=== PATIENT | male | born 1945 | race Caucasian/White ===

== ENCOUNTER 2016-11-12 15:29 | Inpatient (IN) | payer OTHER ==
[~2016-11-12] VITALS: Ht 180.3 cm; Wt 100.5 kg
[~2016-11-12 15:29] MED LIST: ANALGESIC325 M1 PO; ASPIR-TRIN325 M1 PO; ASPIRIN81 M1 PO; BAYER CHEWABLE81 MG PO; BENICAR HCT 201 EACH PO; BYSTOLIC5 MG PO; Bactrim,Septra DS 80 PO; CALCIUM 600 +1 EAC8 PO; CLEOCIN300 MG PO; Colace PO; ENDOCET 5-3251 EACH PO; FLOMAX0.4 M1 PO; FLOMAX0.4 MG PO; FORTAMET500 M1 PO; FUROSEMIDE40 MG PO; Flomax PO; GLUCOPHAGE XR1000 MG PO; GLUCOPHAGE1000 MG PO; HYDROCODON-ACE1 EAC9 PO; JANUVIA100 MG PO; Januvia PO; K-DUR10 ME2 PO; K-DUR10 MEQ PO; LISINOPRIL-HCT1 EAC3 PO; LORTAB 7.5/51 TABLET PO; LOVENOX40 MG/0.4 SC; Lasix PO; Norco 5/325 PO; Oyst-Cal D, Oscal W/ PO; PRAMIPEXOLE DI0.5 MG PO; PREDNISONE10 MG PO; PRINZIDE 20-121 EACH PO; PROTONIX40 MG PO; TYLENOL325 M1 PO; Tylenol Regular Stre PO; VANCOMYCIN100 MG/ML IV
[2016-11-12 16:25] LABS: EOSINOPHIL (%) 1.8 % (0-5); EOSINOPHIL COUNT 0.1 K/uL (0-0.3); HEMATOCRIT 41.9 % (38.0-50.0); IMMATURE GRANULOCYTE (%) 0.9 % (0.0-0.7); IMMATURE GRANULOCYTE COUNT 0.1 K/uL; INSTRUMENT ABS NEUTROPHIL CT 6.8 K/uL; LYMPHOCYTE COUNT 0.4 K/uL (1.0-2.8); MCH 29.3 PG (29.0-34.0); MCHC 32.2 G/DL (30.0-36.0); MCV 90.9 FL (86-99); MEAN PLAT.VOLUME 9.4 uM^3 (9.0-12.4); MONOCYTE (%) 5.3 % (3-12); MONOCYTE COUNT 0.4 K/uL (0-0.8); NEUTROPHIL (%) 87.1 % (45-76); NEUTROPHIL COUNT 6.8 K/uL (1.8-6.4); PLATELET COUNT 143 K/uL (156-360); RED BLOOD COUNT 4.61 M/uL (4.00-5.50); WHITE BLOOD COUNT 7.8 K/uL (4.1-10.2)
[2016-11-12 16:39] LABS: CHLORIDE 101 mEq/L (99-109); POTASSIUM 3.7 mEq/L (3.7-5.4); SODIUM 138 mEq/L (136-147)
[2016-11-12 16:40] LABS: GLUCOSE 95 mg/dL (70-99)
[2016-11-12 16:42] LABS: ANION GAP 11 MEQ/L (2-14)
[2016-11-12 16:44] LABS: GFR ESTIMATE (CALCULATED) 46 mL/min/
[2016-11-12 16:45] LABS: UREA NITROGEN (BUN) 37 mg/dL (9-23)
[2016-11-12] MEDS ORDERED: OXYCODONE-APAP1 EAC6 PO (19:33)
[2016-11-12] MEDS ORDERED: CARBIDOPA/LEVO1 EACH PO (19:33)
[2016-11-12] MEDS ORDERED: TRAMADOL HCL50 MG PO (19:34)
[2016-11-12] MEDS ORDERED: DUTASTERIDE0.5 MG PO (19:35)
[2016-11-12 22:29] VITALS: BP 118/61
[2016-11-12 23:06] VITALS: BP 128/67
[2016-11-13 01:24] LABS: METH RESISTANT S AUREUS PCR POSITIVE (NEGATIVE)
[2016-11-13 01:34] LABS: PROBE CHECK PASS
[2016-11-13 03:38] VITALS: BP 130/61
[2016-11-13 06:43] LABS: POINT-OF-CARE METER ID UU14162508
[2016-11-13 07:24] LABS: ALKALINE PHOSPHATASE 49 IU/L (3-129); ANION GAP 8 MEQ/L (2-14); CHLORIDE 99 MEQ/L (99-109); GFR ESTIMATE (CALCULATED) 46 mL/min/; GLUCOSE 88 mg/dL (70-99); POTASSIUM 3.6 MEQ/L (3.7-5.4); SAMPLE HEMOLYSIS CHECK 0; SAMPLE ICTERIC CHECK 0; SAMPLE LIPEMIA CHECK 0; SODIUM 135 MEQ/L (136-147); TOTAL BILIRUBIN 0.8 MG/DL (0.0-1.0); UREA NITROGEN (BUN) 31 mg/dL (9-23)
[2016-11-13 08:00] VITALS: BP 121/65
[2016-11-13] MEDS ORDERED: AVALIDE 300/1 TABLET PO (11:48)
[2016-11-13] MEDS ORDERED: FLOMAX0.4 MG PO (11:49)
[2016-11-13] MEDS ORDERED: AVODART0.5 MG PO (11:49)
[2016-11-13] MEDS ORDERED: BYSTOLIC10 MG PO (11:50)
[2016-11-13] MEDS ORDERED: PRAMIPEXOLE DI0.5 MG PO (11:50)
[2016-11-13] MEDS ORDERED: JANUVIA100 MG PO (11:51)
[2016-11-13] MEDS ORDERED: METFORMIN HCL1000 MG PO (11:51)
[2016-11-13] MEDS ORDERED: XANAX0.5 MG PO (11:52)
[2016-11-13] MEDS ORDERED: K-DUR10 MEQ PO (11:52)
[2016-11-13] MEDS ORDERED: SINEMET CR 25-1 EACH PO (11:53)
[2016-11-13] MEDS ORDERED: CALCIUM 600 +1 EAC9 PO (11:53)
[2016-11-13] MEDS ORDERED: SINEMET 25-1001 EACH PO (11:53)
[2016-11-13] MEDS ORDERED: PERCOCET 7.51 TABLET PO (11:54)
[2016-11-13] MEDS ORDERED: LOW DOSE ASPIRI81 M1 PO (11:55)
[2016-11-13] MEDS ORDERED: TRAMADOL HCL50 MG PO (11:55)
[2016-11-13] MEDS ORDERED: LASIX40 MG PO (11:55)
[2016-11-13] MEDS ORDERED: TYLENOL EXTRA500 MG PO (11:56)
[2016-11-13] MEDS ORDERED: IMODIUM A-D2 M2 PO (11:56)
[2016-11-13] MEDS ORDERED: BLINK TEARS BOTH EYES (12:01)
[2016-11-13 12:36] LABS: POINT-OF-CARE METER ID UU14162508
[2016-11-13 23:45] VITALS: BP 127/63
[2016-11-14 08:11] VITALS: BP 108/62
[2016-11-14 15:27] VITALS: BP 106/76
[2016-11-14 21:47] LABS: POINT-OF-CARE METER ID UU14162508
[2016-11-14 23:16] VITALS: BP 155/69
[2016-11-15 04:01] VITALS: BP 128/69
[2016-11-15 06:55] LABS: POINT-OF-CARE METER ID UU14162508
[2016-11-15 07:50] VITALS: BP 128/72
[2016-11-15 11:45] LABS: POINT-OF-CARE METER ID UU14162508
[2016-11-15 15:59] VITALS: BP 123/68
[2016-11-15 16:32] LABS: POINT-OF-CARE METER ID UU14162508
[2016-11-15] MEDS ORDERED: PERCOCET 10/1 TABLET PO (17:09)
[2016-11-15] MEDS ORDERED: AUGMENTIN500 MG PO (17:09)
== END 2016-11-15 17:43 | disposition home or self-care (01) | DRG 603 ==
LOC: EME 15:29 → EDOF 21:13 → 2EASTP 21:13 → 5SOUTH 11-13 15:29 → 2EASTP 11-13 16:13
PROVIDERS: Internal Medicine; Nurse Practitioner Family
DX: L03.116 Cellulitis of left lower limb (principal); I10 Essential (primary) hypertension; E11.9 Type 2 diabetes mellitus without complications; J43.9 Emphysema, unspecified; G20 Parkinson's disease; M19.90 Unspecified osteoarthritis, unspecified site; I25.10 Atherosclerotic heart disease of native coronary artery without angina pectoris; Z96.652 Presence of left artificial knee joint; L84 Corns and callosities; B07.0 Plantar wart; I25.2 Old myocardial infarction; Z79.4 Long term (current) use of insulin; Z79.84 Long term (current) use of oral hypoglycemic drugs; Z88.2 Allergy status to sulfonamides
CPT/HCPCS: 73560; 73630; 80048; 80053; 80202; 82565; 82948; 83605; 85025; 87040; 87641; 93971; 94660; 99281; 99285; J0295; J1650; J1815; J3370; J7050

== ENCOUNTER 2017-07-24 14:44 | Inpatient (IN) | payer OTHER ==
[~2017-07-24] VITALS: Ht 177.8 cm; Wt 104.6 kg
[~2017-07-24 14:44] MED LIST changes: +AUGMENTIN500 MG PO; +AVALIDE 300/1 TABLET PO; +AVODART0.5 MG PO; +BLINK TEARS BOTH EYES; +BYSTOLIC10 MG PO; +CALCIUM 600 +1 EAC9 PO; +CARBIDOPA/LEVO1 EACH PO; +DUTASTERIDE0.5 MG PO; +IMODIUM A-D2 M2 PO; +LASIX40 MG PO; +LOW DOSE ASPIRI81 M1 PO; +METFORMIN HCL1000 MG PO; +OXYCODONE-APAP1 EAC6 PO; +PERCOCET 10/1 TABLET PO; +PERCOCET 7.51 TABLET PO; +SINEMET 25-1001 EACH PO; +SINEMET CR 25-1 EACH PO; +TRAMADOL HCL50 MG PO; +TYLENOL EXTRA500 MG PO; +XANAX0.5 MG PO
[2017-07-24 15:26] LABS: BASOPHIL (%) 0.8 % (0-1); BASOPHIL COUNT 0.1 K/uL (0-0.1); EOSINOPHIL (%) 4.5 % (0-5); EOSINOPHIL COUNT 0.3 K/uL (0-0.3); HEMATOCRIT 37.4 % (38.0-50.0); HEMOGLOBIN 12.5 G/DL (12.5-16.6); IMMATURE GRANULOCYTE (%) 1.1 % (0.0-0.7); LYMPHOCYTE (%) 15.7 % (15-42); MCH 29.4 PG (29.0-34.0); MCHC 33.4 G/DL (30.0-36.0); MONOCYTE (%) 7.1 % (3-12); MONOCYTE COUNT 0.5 K/uL (0-0.8); NEUTROPHIL (%) 70.8 % (45-76); NEUTROPHIL COUNT 4.6 K/uL (1.8-6.4); PLATELET COUNT 192 K/uL (156-360); RBC DIS.WIDTH-CV 13.2 % (11.8-14.6); RBC DIS.WIDTH-SD 42.5 % (39-53); RED BLOOD COUNT 4.25 M/uL (4.00-5.50); WHITE BLOOD COUNT 6.5 K/uL (4.1-10.2)
[2017-07-24 15:35] LABS: ALBUMIN 4.1 g/dL (3.2-4.8)
[2017-07-24 15:36] LABS: CHLORIDE 102 mEq/L (99-109); POTASSIUM 3.6 mEq/L (3.7-5.4); SODIUM 140 mEq/L (136-147)
[2017-07-24 15:38] LABS: GLUCOSE 127 mg/dL (70-99); TOTAL PROTEIN 7.6 g/dL (6.4-8.3)
[2017-07-24 15:40] LABS: TOTAL BILIRUBIN 0.4 mg/dL (0.0-1.0)
[2017-07-24 15:41] LABS: ALKALINE PHOSPHATASE 61 IU/L (3-129)
[2017-07-24 15:42] LABS: CREATININE 1.7 mg/dL (0.6-1.3); GFR ESTIMATE (CALCULATED) 43 mL/min/ (58.99-99999)
[2017-07-24 15:43] LABS: AST (GOT) 16 IU/L (2-34); UREA NITROGEN (BUN) 35 mg/dL (9-23)
[2017-07-24 15:44] LABS: ALT (GPT) 8 IU/L (3-49)
[2017-07-24 20:48] LABS: APPEARANCE CLEAR ((CLEAR)); BILIRUBIN NEGATIVE; BLOOD NEGATIVE; COLOR YELLOW ((YELLOW)); GLUCOSE (STRIP) NEGATIVE; KETONES NEGATIVE; LEUKOCYTES NEGATIVE; NITRITE NEGATIVE; PROTEIN (STRIP) NEGATIVE; SPECIFIC GRAVITY 1.018 (1.000-1.030); UCUL ADDED? NO; UROBILINOGEN 0.2 MG/DL (0.2-1.0)
[2017-07-24 21:26] VITALS: BP 119/60
[2017-07-25] VITALS (7 sets, daily range): BP systolic 93–132; BP diastolic 55–80
[2017-07-26 04:10] VITALS: BP 108/55
[2017-07-26 07:57] VITALS: BP 101/61
[2017-07-26 12:04] VITALS: BP 142/67
[2017-07-26 16:39] VITALS: BP 109/64
[2017-07-26 19:04] VITALS: BP 111/60
[2017-07-26 22:43] VITALS: BP 115/57
[2017-07-27 04:10] VITALS: BP 106/58
[2017-07-27 08:03] VITALS: BP 99/55
[2017-07-27 12:07] VITALS: BP 115/66
[2017-07-27 16:35] VITALS: BP 115/66
[2017-07-27 19:47] VITALS: BP 134/68
[2017-07-27 23:49] VITALS: BP 109/61
[2017-07-28 07:10] VITALS: BP 119/61
[2017-07-28] MEDS ORDERED: TRAMADOL HCL50 MG PO (12:45)
[2017-07-28] MEDS ORDERED: HYDROCODON-ACE1 EAC9 PO (12:45)
[2017-07-28] MEDS ORDERED: AMLODIPINE BESY10 MG PO (12:45)
[2017-07-28] MEDS ORDERED: METFORMIN HCL1000 M3 PO (12:46)
[2017-07-28] MEDS ORDERED: OMEPRAZOLE40 M1 PO (12:47)
[2017-07-28] MEDS ORDERED: COMTAN200 MG PO (12:47)
[2017-07-28] MEDS ORDERED: MAGNESIUM400 M1 PO (12:48)
[2017-07-28] MEDS ORDERED: MUCINEX1200 MG PO (12:48)
[2017-07-28] MEDS ORDERED: ARTIFICIAL TEAR1510 BOTH EYES (12:49)
[2017-07-28 15:18] VITALS: BP 113/61
[2017-07-29 00:30] VITALS: BP 136/60
[2017-07-29 07:37] VITALS: BP 112/59
[2017-07-29 11:37] VITALS: BP 118/56
[2017-07-29] MEDS ORDERED: AMITRIPTYLINE H50 MG PO (15:09)
[2017-07-29] MEDS ORDERED: LYRICA75 MG PO (15:11)
[2017-07-29] MEDS ORDERED: ALPRAZOLAM0.5 MG PO (15:11)
[2017-07-29 15:49] VITALS: BP 143/70
== END 2017-07-29 17:23 | DRG 603 ==
LOC: EME 14:44 → 5EAST 17:38 → EDOF 17:38 → ENRESERV 17:40 → 5EAST 21:04
PROVIDERS: Emergency Medicine; Internal Medicine
DX: L03.115 Cellulitis of right lower limb (principal); L97.821 Non-pressure chronic ulcer of other part of left lower leg limited to breakdown of skin; L97.521 Non-pressure chronic ulcer of other part of left foot limited to breakdown of skin; L03.116 Cellulitis of left lower limb; E11.621 Type 2 diabetes mellitus with foot ulcer; G20 Parkinson's disease; I11.0 Hypertensive heart disease with heart failure; I50.9 Heart failure, unspecified; E78.5 Hyperlipidemia, unspecified; K21.9 Gastro-esophageal reflux disease without esophagitis; G25.81 Restless legs syndrome; Z79.4 Long term (current) use of insulin; I25.10 Atherosclerotic heart disease of native coronary artery without angina pectoris; F41.9 Anxiety disorder, unspecified; M19.90 Unspecified osteoarthritis, unspecified site; Z96.652 Presence of left artificial knee joint; E11.51 Type 2 diabetes mellitus with diabetic peripheral angiopathy without gangrene; Z87.891 Personal history of nicotine dependence; E66.9 Obesity, unspecified; Z68.31 Body mass index [BMI] 31.0-31.9, adult; I83.028 Varicose veins of left lower extremity with ulcer other part of lower leg
CPT/HCPCS: 36415; 73630; 80053; 81003; 82948; 83605; 83880 GA; 85025; 93971; 97530 GP; 99281; 99285; J1644; J2543; J3370; J7050

== ENCOUNTER 2017-09-15 10:58 | Inpatient (IN) | payer OTHER ==
[~2017-09-15] VITALS: Ht 177.8 cm; Wt 97.8 kg
[~2017-09-15 10:58] MED LIST changes: +ALPRAZOLAM0.5 MG PO; +AMITRIPTYLINE H50 MG PO; +AMLODIPINE BESY10 MG PO; +ARTIFICIAL TEAR1510 BOTH EYES; +COMTAN200 MG PO; +LYRICA75 MG PO; +MAGNESIUM OXID500 MG PO; +METFORMIN HCL1000 M3 PO; +MUCINEX1200 MG PO; +OMEPRAZOLE40 M1 PO
[2017-09-15 11:30] LABS: BASOPHIL (%) 0.5 % (0-1); EOSINOPHIL (%) 2.3 % (0-5); EOSINOPHIL COUNT 0.2 K/uL (0-0.3); HEMATOCRIT 36.6 % (38.0-50.0); HEMOGLOBIN 12.3 G/DL (12.5-16.6); IMMATURE GRANULOCYTE (%) 0.7 % (0.0-0.7); LYMPHOCYTE (%) 11.9 % (15-42); MCH 28.9 PG (29.0-34.0); MCHC 33.6 G/DL (30.0-36.0); MCV 86.1 FL (86-99); MONOCYTE COUNT 0.8 K/uL (0-0.8); NEUTROPHIL (%) 74.6 % (45-76); NEUTROPHIL COUNT 6.2 K/uL (1.8-6.4); PLATELET COUNT 180 K/uL (156-360); RBC DIS.WIDTH-CV 13.7 % (11.8-14.6); RBC DIS.WIDTH-SD 42.9 % (39-53); RED BLOOD COUNT 4.25 M/uL (4.00-5.50); WHITE BLOOD COUNT 8.3 K/uL (4.1-10.2)
[2017-09-15 11:35] LABS: INTER. NORMALIZED RATIO 1.3
[2017-09-15 11:38] LABS: CHLORIDE 104 mEq/L (99-109); POTASSIUM 3.7 mEq/L (3.7-5.4); PTT 33.7 SEC (25-37); SODIUM 139 mEq/L (136-147)
[2017-09-15 11:39] LABS: GLUCOSE 132 mg/dL (70-99)
[2017-09-15 11:43] LABS: GFR ESTIMATE (CALCULATED) 35 mL/min/ (58.99-99999)
[2017-09-15 11:44] LABS: UREA NITROGEN (BUN) 29 mg/dL (9-23)
[2017-09-15 11:50] LABS: TROP-I INTERPRETATION NEGATIVE; TROPONIN-I < 0.01 ng/mL (0.0-0.30)
[2017-09-15 12:51] LABS: APPEARANCE CLEAR ((CLEAR)); BILIRUBIN NEGATIVE; BLOOD NEGATIVE; COLOR AMBER ((YELLOW)); GLUCOSE (STRIP) NEGATIVE; KETONES NEGATIVE; LEUKOCYTES TRACE; NITRITE NEGATIVE; PROTEIN (STRIP) NEGATIVE; SPECIFIC GRAVITY 1.011 (1.000-1.030); UROBILINOGEN 0.2 MG/DL (0.2-1.0)
[2017-09-15 12:55] LABS: BACTERIA RARE /HPF; EPITHELIAL CELLS NONE SEEN /HPF; MUCUS TRACE /LPF; RED BLOOD CELLS 0-5 /HPF (0-5); UCUL ADDED? NO; WHITE BLOOD CELLS 0-5 /HPF (0-5)
[2017-09-15] MEDS ORDERED: RESTORIL30 MG PO (15:23)
[2017-09-15] MEDS ORDERED: BYSTOLIC10 MG PO (15:24)
[2017-09-15] MEDS ORDERED: NAMENDA10 MG PO (15:26)
[2017-09-15] MEDS ORDERED: COLACE100 MG PO (15:27)
[2017-09-15] MEDS ORDERED: FLAGYL500 MG PO (15:28)
[2017-09-15] MEDS ORDERED: FLONASE16 G1 BOTH NARES (15:28)
[2017-09-15] MEDS ORDERED: MELATONIN10 M1 PO (15:28)
[2017-09-15] MEDS ORDERED: ULTRAM ER200 MG PO (15:28)
[2017-09-15 20:02] VITALS: BP 133/72
[2017-09-16] VITALS (7 sets, daily range): BP systolic 117–147; BP diastolic 64–88
[2017-09-17 06:15] LABS: HEMOGLOBIN 12.5 G/DL (12.5-16.6); MCH 28.7 PG (29.0-34.0); MCHC 33.8 G/DL (30.0-36.0); MCV 85.1 FL (86-99); RBC DIS.WIDTH-CV 13.6 % (11.8-14.6); RBC DIS.WIDTH-SD 42.3 % (39-53); RED BLOOD COUNT 4.35 M/uL (4.00-5.50); WHITE BLOOD COUNT 9.5 K/uL (4.1-10.2)
[2017-09-17 06:18] LABS: PLATELET COUNT 247 K/uL (156-360)
[2017-09-17 06:51] LABS: CHLORIDE 108 MEQ/L (99-109); GFR ESTIMATE (CALCULATED) > 59 mL/min/ (58.99-99999); GLUCOSE 163 mg/dL (70-99); POTASSIUM 4.1 MEQ/L (3.7-5.4); SODIUM 140 MEQ/L (136-147); UREA NITROGEN (BUN) 29 mg/dL (9-23)
[2017-09-17 06:52] LABS: CREATININE 1.2 MG/DL (0.6-1.3)
[2017-09-17 07:31] VITALS: BP 139/80
[2017-09-17 11:42] VITALS: BP 151/85
[2017-09-17 15:38] VITALS: BP 140/71
[2017-09-17 19:11] VITALS: BP 135/73
[2017-09-18 00:18] VITALS: BP 147/75
[2017-09-18 04:11] VITALS: BP 164/90
[2017-09-18 07:21] VITALS: BP 154/82
[2017-09-18 11:13] VITALS: BP 138/72
== END 2017-09-18 17:06 | disposition home or self-care (01) | DRG 55 ==
LOC: EME 10:58 → EDOF 14:22 → 5SOUTH 14:22 → CANRESERV 14:24 → ENRESERV 14:24 → 5SOUTH 19:29
PROVIDERS: Emergency Medicine; Family Medicine; Internal Medicine
DX: C79.31 Secondary malignant neoplasm of brain (principal); C71.9 Malignant neoplasm of brain, unspecified; N40.1 Benign prostatic hyperplasia with lower urinary tract symptoms; I10 Essential (primary) hypertension; E11.9 Type 2 diabetes mellitus without complications; R29.810 Facial weakness; G20 Parkinson's disease; I25.10 Atherosclerotic heart disease of native coronary artery without angina pectoris; K21.9 Gastro-esophageal reflux disease without esophagitis; N28.9 Disorder of kidney and ureter, unspecified; R29.705 NIHSS score 5; Z82.0 Family history of epilepsy and other diseases of the nervous system; M19.90 Unspecified osteoarthritis, unspecified site; Z96.652 Presence of left artificial knee joint; Z87.891 Personal history of nicotine dependence; Z87.820 Personal history of traumatic brain injury
CPT/HCPCS: 70450; 70553; 71045; 71260; 74018; 74177; 74230; 80047; 80048; 81003; 82948; 84484; 85025; 85027; 85610; 85730; 92526 GN; 92611 GN; 93005; 97530 GO; 97530 GP; 99281; 99285; A6214; J1100; J1644; J1815; J7030; J7042